=== PATIENT | female | born 1995 | race Caucasian/White ===

== ENCOUNTER 2017-12-11 05:56 | Emergency (ER) | payer BC ==
[2017-12-11 06:02] VITALS: BP 117/73; PULSE 72; RESP 18; TEMP 98.3
--- NOTE | 2017-12-11 06:11 | ED ---
General Adult HPI - General Chief complaint: Extremity Injury, Upper Stated complaint: Hand Injury Time Seen by Provider: 12/11/17 06:06 Source: patient, RN notes reviewed Mode of arrival: ambulatory Limitations: no limitations - History of Present Illness Initial comments: Patient 22-year-old female presents to the emergency room today with a chief complaint of injury to left hand. She states that last night she punched a tree. Patient does admit to pain over the third and fourth MCP joints. Patient denies any other complaints or symptoms. Patient denies any recent fever , chills, shortness of breath, chest pain, back pain, abdominal pain, nausea or vomiting, numbness or tingling, headaches or visual changes, or any other complaints. - Related Data Previous Rx's Medication Instructions Recorded Ibuprofen [Motrin] 600 mg PO Q6HR PRN #20 day 12/11/17 Allergies Allergy/AdvReac Type Severity Reaction Status Date / Time No Known Allergies Allergy Verified 12/11/17 06:02 Review of Systems ROS Statement: Those systems with pertinent positive or pertinent negative responses have been documented in the HPI. ROS Other: All systems not noted in ROS Statement are negative. Past Medical History Past Medical History: No Reported History History of Any Multi-Drug Resistant Organisms: None Reported Past Surgical History: No Surgical Hx Reported Past Psychological History: No Psychological Hx Reported Smoking Status: Never smoker Past Alcohol Use History: Occasional Past Drug Use History: None Reported General Exam - General Exam Comments Initial Comments: General: The patient is awake and alert, in no distress, and does not appear acutely ill. Neck: The neck is supple, there is no tenderness or JVD. Musculoskeletal: Patient does have some mild swelling to the left hand over the third, fourth, fifth MCP joints. Superficial abrasions over the third and fourth MCP joint. Locally tender in these areas. No tenderness into the left wrist or down into the digits of the hand. Radial pulses 2+. Patient shows good range of motion. Strength 5/5. Neurological: A&O x 3. CN II-XII intact, There are no obvious motor or sensory deficits. Coordination appears grossly intact. Speech is normal. Skin: Skin is warm and dry and no rashes or lesions are noted. Psychiatric: Normal mood and affect. Limitations: no limitations Course Vital Signs 12/11/17 06:00 Temperature 98.3 F Pulse Rate 72 Respiratory 18 Rate Blood Pressure 117/73 O2 Sat by Pulse 99 Oximetry Medical Decision Making - Medical Decision Making X-ray reviewed negative for any acute fracture dislocation. Results were discussed with the patient. Patient will be discharged home advised ice elevate the affected area. Advised follow-up with family doctor/orthopedic over the next 7-10 days for repeat x-rays if symptoms persist. Disposition Clinical Impression: Hand contusion Disposition: HOME SELF-CARE Condition: Good Instructions: Contusion in Adults (ED) Additional Instructions: Please continue to ice elevate the affected area. Please use ibuprofen for pain. Please follow-up in 7-10 days if symptoms persist. Prescriptions: Ibuprofen [Motrin] 600 mg PO Q6HR PRN #20 day PRN Reason: Pain Is patient prescribed a controlled substance at d/c from ED?: No Referrals: None,Stated [Primary Care Provider] - 1-2 days Lillie Gates PAC [PHYSICIAN PRECISION MACHINE OPERATOR] - 1-2 days Time of Disposition: 06:52
--- NOTE | 2017-12-11 06:49 | XR ---
EXAMINATION TYPE: XR hand complete LT DATE OF EXAM: 12/11/2017 COMPARISON: NONE HISTORY: Pain and swelling TECHNIQUE: 3 views FINDINGS: I see no fracture nor dislocation. Metacarpals are intact. There is soft tissue swelling on the dorsum of the hand. IMPRESSION: Soft tissue swelling. No fracture seen.
== END 2017-12-11 06:58 | disposition home or self-care (01) ==
LOC: EC 05:56
DX: S60.222A Contusion of left hand, initial encounter (principal); W22.8XXA Striking against or struck by other objects, initial encounter
CPT/HCPCS: 99283